=== PATIENT | female | born 2005 | race Caucasian/White ===

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

== ENCOUNTER 2023-03-29 23:44 | Emergency (ER) | payer OTHER, SELFPAY ==
[2023-03-30 00:25] VITALS: BP 112/58; PULSE 64; RESP 16; TEMP 36.3; O2SAT 99; BMI 21.9
--- NOTE | 2023-03-30 05:23 | ED.ANIMALBIT ---
HPI - Animal Bite General Chief Complaint: Animal Bite Stated Complaint: iNSECT BITE Time Seen by Provider: 03/30/23 05:23 Source: patient Mode of arrival: Ambulatory History of Present Illness HPI narrative: 17-year-old young woman with a history of significant reactions to bug bites most of her life. She comes in today complaining of a bite on the right lateral thigh right medial thigh and right flank. The right lateral thigh is still red and inflamed the other 2 sites are improving nicely. She denies any fevers nausea vomiting or other systemic symptoms at this time. Related Data Home Medications Medication Instructions Recorded Confirmed buspirone 10 mg tablet 5 mg PO BID 03/16/21 05/11/21 hydroxyzine HCl 25 mg tablet 25 mg PO BID PRN 03/16/21 05/11/21 Previous Rx's Medication Instructions Recorded trazodone 50 mg tablet 50 mg PO BEDTIME PRN insomnia #30 01/25/22 tabs clonidine HCl 0.1 mg tablet 0.1 mg PO BEDTIME Insomnia #30 tabs 01/22/23 methylphenidate HCl 36 mg 36 mg PO QAM ADHD #30 tabs 01/24/23 tablet,extended release 24 hr lamotrigine 25 mg tablet 25 mg PO BEDTIME Mood 03/07/23 Stabilization #30 tabs methylphenidate HCl 36 mg 36 mg PO QAM ADHD #30 tabs 03/07/23 tablet,extended release 24 hr Allergies Allergy/AdvReac Type Severity Reaction Status Date / Time No Known Drug Allergies Allergy Verified 10/28/22 23:25 Review of Systems Review of Systems Narrative: Pertinent positive and negative findings as per HPI Patient History Social History Smoking Status: Current every day smoker Smoking Status: Current every day smoker Substance Use Type: does not use Exam Initial Vital Signs Initial Vital Signs: Vital Signs Temperature 97.3 F L 03/30/23 00:25 Pulse Rate 64 03/30/23 00:25 Respiratory Rate 16 03/30/23 00:25 Blood Pressure 112/58 L 03/30/23 00:25 Pulse Oximetry 99 03/30/23 00:25 Oxygen Delivery Method Room Air 03/30/23 00:25 General: Alert appropriate in no acute distress Respiratory: Able to speak in full sentences, no obvious respiratory distress Skin: Bug bite with approximately 6 cm of surrounding induration on the right lateral thigh, right medial thigh the induration is almost completely resolved and the right flank the induration has completely resolved Neurologic: Grossly intact no obvious asymmetries or abnormalities Psych: appropriate insight and affect, cooperative Course Vital Signs Vital signs: Vital Signs - 8 hr 03/30/ 00:25 Temperature 97.3 F L Pulse Rate 64 Respiratory Rate 16 Blood Pressure 112/58 L Pulse Oximetry 99 Oxygen Delivery Method Room Air MDM - Animal Bite MDM Narrative Medical decision making narrative: CC: Bug bites. Acute problem self-limited Data collected from: patient, Differential considered: Bug bites, MRSA, abscess Exam documented above, pertinent findings include: Induration secondary to bug bites no evidence of secondary infection or abscess Discussion: 17-year-old young woman with bug bites x3. No sign of infection. We talked about using ibuprofen if she is feeling itchy all over or any particular bite seems like it is getting worse. Also discussed use of ibuprofen and Tylenol for overall symptom control. Reassurance is given if she is safe for discharge home Discharge Plan Departure Patient Disposition: Home Clinical Impression: Bug bite Qualifiers: Encounter type: initial encounter Qualified Code(s): W57.XXXA - Bitten or stung by nonvenomous insect and other nonvenomous arthropods, initial encounter Prescriptions: No Action hydroxyzine HCl 25 mg tablet 25 mg PO BID PRN Hold Instructions: Home Medication placed on hold at Doctor's office buspirone 10 mg tablet 5 mg PO BID Hold Instructions: Home Medication placed on hold at Doctor's office trazodone 50 mg tablet 50 mg PO BEDTIME PRN (Reason: insomnia) Qty: 30 2RF Hold Instructions: patient states not taking anymore methylphenidate HCl 36 mg tablet extended release 24hr 36 mg PO QAM Qty: 30 0RF Hold Instructions: Home Medication placed on hold at Doctor's office clonidine HCl 0.1 mg tablet 0.1 mg PO BEDTIME Qty: 30 2RF Hold Instructions: Home Medication placed on hold at Doctor's office lamotrigine 25 mg tablet 25 mg PO BEDTIME MDD 25 mg Qty: 30 1RF methylphenidate HCl 36 mg tablet extended release 24hr 36 mg PO QAM Qty: 30 0RF Hold Instructions: Home Medication placed on hold at Doctor's office Referrals: Miscellaneous,Doctor, MD [Primary Care Provider] - Stand Alone Forms: Patient Portal/API
[2023-03-30 05:48] VITALS: BP 118/64; PULSE 66; RESP 14; TEMP 36.4; O2SAT 99
== END 2023-03-30 05:50 | disposition home or self-care (01) ==
PROVIDERS: Emergency Provider Emergency Medicine
DX: S80.861A Insect bite (nonvenomous), right lower leg, initial encounter (principal); W57.XXXA Bitten or stung by nonvenomous insect and other nonvenomous arthropods, initial encounter
CPT/HCPCS: 99281

== ENCOUNTER 2023-12-23 21:31 | Emergency (ER) | payer OTHER, SELFPAY ==
[2023-12-23 21:45] VITALS: BP 126/74; PULSE 98; RESP 20; TEMP 37; O2SAT 99; BMI 23.0
--- NOTE | 2023-12-23 22:18 | DI.US.S_ITS ---
PROCEDURE: US OB <= 14 WEEKS FETUS INDICATIONS: unknown dates + home test with bleeding OUTSIDE/PRIOR DATING DATA: Last menstrual period (LMP): Not available. LMP-based estimated date of delivery (JOSE): Not available. First dating scan (date and location): 12/23/2023 at . Estimated date of delivery (JOSE) from first dating scan: 08/18/2024. TECHNIQUE: Real-time scanning was performed of the fetus and maternal pelvic organs, with image documentation. Endovaginal scanning was also performed to better visualize the fetus and maternal ovaries. COMPARISON: None. FINDINGS: Embryo: There is an intrauterine gestational sac. A pole is present measuring 5 weeks 6 days. cardiac join is visualized with heart rate 104 BPM. Endometrium is thickened measuring 28.4 mm. Maternal organs: Ovaries are grossly normal. IMPRESSION: 1. A single living intrauterine gestation with an estimated gestational age of 5 weeks 6 days corresponding to ultrasound JOSE 08/18/2024. 2. Endometrium is thickened, which may be secondary to decidual reaction. Recommend clinical correlation and follow-up as clinically indicated. 3. No perigestational bleed. We strive to produce accurate, complete, and clear reports of imaging services. To assist us in improving patient care, this report was composed using standard report templates and voice recognition software. Therefore, it may contain abnormal punctuation, insertions and/or omissions. Occasional wrong-word or sound-alike substitutions may occur. Though we review the report and make efforts to correct it, we do recommend that the report be read carefully in proper context to recognize any text inaccuracies. Dictated by: Lulu Burciaga M.D. on 12/23/2023 at 23:44 Approved by: Lulu Burciaga M.D. on 12/23/2023 at 23:47
[2023-12-23 22:45] LABS: Add Manual Diff / Slide Review NO; Basophils Absolute Auto 100 /uL (0-100); Basophils Percent Auto 0.9 % (0-2); Eosinophils Absolute Auto 100 /uL (0-450); Eosinophils Percent Auto 0.9 % (2-4); Hematocrit 33.2 % (36-46); Hemoglobin 11.1 g/dL (12.0-16.0); Lymphocytes Absolute Auto 2800 /uL (1100-4500); Lymphocytes Percent Auto 31.3 % (25-40); Mean Corpuscular HGB Conc 33.4 % (30-36); Mean Corpuscular Hemoglobin 31.4 PG (26-34); Mean Corpuscular Volume 94.2 fL (80-100); Monocytes Absolute Auto 900 /uL (0-900); Monocytes Percent Auto 9.9 % (3-14); Neutrophils Absolute Auto 5100 /uL (1500-7000); Platelet Count 281 X10^3/uL (150-400); Red Blood Cell Count 3.53 X10^6/uL (4.0-5.2); Red Cell Distribution Width 12.8 % (11.6-14.8)
--- NOTE | 2023-12-23 22:50 | ED_ITS ---
HPI - General Adult General Chief complaint: Urogenital-Female Stated complaint: wants to know how far Time Seen by Provider: 12/23/23 21:43 Source: patient Mode of arrival: Ambulatory History of Present Illness HPI narrative: Patient is a 18-year-old female. Took 2 tests today at home and they were both positive. She is unsure as to how far along she is. Her last normal menstrual cycle was in September of this year. She has never been before. She has not having any vaginal bleeding or discharge. Vomiting. No fevers. Related Data Home Medications Medication Instructions Recorded Confirmed buspirone 10 mg tablet 5 mg PO BID 03/16/21 05/11/21 hydroxyzine HCl 25 mg tablet 25 mg PO BID PRN 03/16/21 05/11/21 Previous Rx's Medication Instructions Recorded trazodone 50 mg tablet 50 mg PO BEDTIME PRN insomnia #30 01/25/22 tabs clonidine HCl 0.1 mg tablet 0.1 mg PO BEDTIME Insomnia #30 tabs 09/12/23 lamotrigine 25 mg tablet 50 mg (2 x 25 mg) PO BEDTIME Mood 09/12/23 Stabilization #60 tabs methylphenidate HCl 36 mg 36 mg PO QAM ADHD #30 tabs 09/12/23 tablet,extended release 24 hr methylphenidate HCl 36 mg 36 mg PO QAM ADHD #30 tabs 09/12/23 tablet,extended release 24 hr Allergies Allergy/AdvReac Type Severity Reaction Status Date / Time No Known Drug Allergies Allergy Verified 10/28/22 23:25 Review of Systems Constitutional Constitutional: Reports system reviewed and no additional complaints, except as documented Gastrointestinal Gastrointestinal: Reports system reviewed and no additional complaints, except as documented Genitourinary Genitourinary: Reports system reviewed and no additional complaints, except as documented Integumentary/Breasts Skin/Breast: Reports system reviewed and no additional complaints, except as documented Patient History Social History Smoking Status: Current every day smoker Smoking Status: Current every day smoker tobacco type: vaping alcohol intake frequency: other Substance Use Type: does not use Exam Initial Vital Signs Initial Vital Signs: Vital Signs Temperature 98.6 F 12/23/23 21:45 Pulse Rate 98 H 12/23/23 21:45 Respiratory Rate 20 12/23/23 21:45 Blood Pressure 126/74 12/23/23 21:45 Pulse Oximetry 99 12/23/23 21:45 Oxygen Delivery Method Room Air 12/23/23 21:45 HENMT Head: normal to inspection and normocephalic Resp Effort & Inspection: normal respiratory effort GI Inspection: non-distended Course Orders Ordered: ED Orders 12/23/23 21:54 Consult to [employer] - Housecleaner Floor Stat 12/23/23 22:18 US OB <= 14 weeks fetus Stat 12/23/23 22:34 ABO RH Type Stat Basic Metabolic Panel Stat Complete Blood Count AUTO DIFF Stat HCG Quantitative /Beta subunit Stat Vital Signs Vital signs: Vital Signs - 8 hr 12/23/23 21:45 12/24/23 00:08 Temperature 98.6 F Pulse Rate 98 H 88 Respiratory Rate 20 16 Blood Pressure 126/74 113/61 Pulse Oximetry 99 99 Oxygen Delivery Method Room Air Room Air Medical Decision Making Lab Data Lab results reviewed: Yes I reviewed the patient's lab results. 12/23/23 22:34 12/23/23 22:34 Labs: Lab Results 12/23/23 Range/Units 22:34 WBC 9.0 (4.5-11.0) X10^3/uL RBC 3.53 L (4.0-5.2) X10^6/uL Hgb 11.1 L (12.0-16.0) g/dL Hct 33.2 L (36-46) % MCV 94.2 (80-100) fL MCH 31.4 (26-34) PG MCHC 33.4 (30-36) % RDW 12.8 (11.6-14.8) % Plt Count 281 (150-400) X10^3/uL Neut % (Auto) 57.0 (50-75) % Lymph % (Auto) 31.3 (25-40) % Dickens % (Auto) 9.9 (3-14) % Eos % (Auto) 0.9 L (2-4) % Baso % (Auto) 0.9 (0-2) % Neut # (Auto) 5100 (7060-8064) /uL Lymph # (Auto) 2800 (0201-4940) /uL Dickens # (Auto) 900 (0-900) /uL Eos # (Auto) 100 (0-450) /uL Baso # (Auto) 100 (0-100) /uL Sodium 136 L (137-145) mmol/L Potassium 3.9 (3.4-5.1) mmol/L Chloride 105 (98-107) mmol/L Carbon Dioxide 26 (22-32) mmol/L BUN 14 (7-17) mg/dL Creatinine 0.42 L (0.52-1.04) mg/dL Estimated GFR > 60 (>60) mL/min BUN/Creatinine Ratio 33.3 H (6-22) Glucose 89 (70-100) mg/dL Calcium 9.4 (8.4-10.2) mg/dL HCG, Quant 30262 mIU/mL Blood Type A Positive Point of Care Testing Test Results Positive Point of care testing: Point of Care Testing Test Results Positive Imaging Data US - OB: Radiologist's Impression: PROCEDURE: US OB <= 14 WEEKS FETUS INDICATIONS: unknown dates + home test with bleeding OUTSIDE/PRIOR DATING DATA: Last menstrual period (LMP): Not available. LMP-based estimated date of delivery (JOSE): Not available. First dating scan (date and location): 12/23/2023 at . Estimated date of delivery (JOSE) from first dating scan: 08/18/2024. TECHNIQUE: Real-time scanning was performed of the fetus and maternal pelvic organs, with image documentation. Endovaginal scanning was also performed to better visualize the fetus and maternal ovaries. COMPARISON: None. FINDINGS: Embryo: There is an intrauterine gestational sac. A pole is present measuring 5 weeks 6 days. cardiac join is visualized with heart rate 104 BPM. Endometrium is thickened measuring 28.4 mm. Maternal organs: Ovaries are grossly normal. IMPRESSION: 1. A single living intrauterine gestation with an estimated gestational age of 5 weeks 6 days corresponding to ultrasound JOSE 08/18/2024. 2. Endometrium is thickened, which may be secondary to decidual reaction. Recommend clinical correlation and follow-up as clinically indicated. 3. No perigestational bleed. MDM Narrative Medical decision making narrative: Patient is Rh positive. Has a single live intrauterine at approximately 6 weeks EGA. I did inform the patient of this. I did give the patient information for follow-up she was going to need to make some decisions about whether or not to keep the . Will discharge patient home with return precautions. Discharge Plan Departure Patient Disposition: Home Clinical Impression: Activity Restrictions/Additional Instructions: I do recommend that you contact the OB providers with the number provided below for a follow-up to discuss options. Your ultrasound today shows that you were approximately 6 weeks along. Return to the emergency department for new symptoms. Prescriptions: No Action lamotrigine 25 mg tablet 50 mg PO BEDTIME MDD 50 mg Qty: 60 2RF Rx Instructions: Dose Change methylphenidate HCl 36 mg tablet extended release 24hr 36 mg PO QAM Qty: 30 0RF Hold Instructions: Home Medication placed on hold at Doctor's office methylphenidate HCl 36 mg tablet extended release 24hr 36 mg PO QAM Qty: 30 0RF Hold Instructions: Home Medication placed on hold at Doctor's office clonidine HCl 0.1 mg tablet 0.1 mg PO BEDTIME Qty: 30 2RF Hold Instructions: Home Medication placed on hold at Doctor's office hydroxyzine HCl 25 mg tablet 25 mg PO BID PRN Hold Instructions: Home Medication placed on hold at Doctor's office buspirone 10 mg tablet 5 mg PO BID Hold Instructions: Home Medication placed on hold at Doctor's office trazodone 50 mg tablet 50 mg PO BEDTIME PRN (Reason: insomnia) Qty: 30 2RF Hold Instructions: patient states not taking anymore Referrals: Cassandra Abdullahi MD [Physician] - Miscellaneous,MD Lonnie [Primary Care Provider] - Stand Alone Forms: Patient Portal/API
[2023-12-23 22:57] LABS: BUN Creatinine Ratio 33.3 (6-22); Blood Urea Nitrogen 14 mg/dL (7-17); Calcium 9.4 mg/dL (8.4-10.2); Carbon Dioxide 26 mmol/L (22-32); Chloride 105 mmol/L (98-107); Estimated Glomerular Filt Rate > 60 mL/min (>60); Glucose 89 mg/dL (70-100); HEMOLYSIS < 15 (0-50); Potassium 3.9 mmol/L (3.4-5.1); Sodium 136 mmol/L (137-145)
[2023-12-23 23:14] LABS: HCG Quantitative /Beta subunit 13619 mIU/mL
[2023-12-24 00:08] VITALS: BP 113/61; PULSE 88; RESP 16; O2SAT 99
== END 2023-12-24 00:10 | disposition home or self-care (01) ==
PROVIDERS: Emergency Provider Emergency Medicine
DX: Z34.01 Encounter for supervision of normal first pregnancy, first trimester (principal); Z3A.01 Less than 8 weeks gestation of pregnancy
CPT/HCPCS: 76801; 80048; 81025; 84702; 85025; 86900; 86901; 99283

== ENCOUNTER 2024-02-25 00:07 | Emergency (ER) | payer OTHER, SELFPAY ==
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
[2024-02-25 00:19] VITALS: BP 132/63; PULSE 76; RESP 16; TEMP 36.8; O2SAT 100; BMI 21.2
[2024-02-25 01:03] VITALS: BP 112/60; PULSE 88; RESP 16; O2SAT 98
[2024-02-25 01:30] VITALS: BP 110/69; PULSE 68; RESP 18; O2SAT 99
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
== END 2024-02-25 01:53 | disposition home or self-care (01) ==
PROVIDERS: Emergency Provider Emergency Medicine
DX: S20.212A Contusion of left front wall of thorax, initial encounter (principal); V89.2XXA Person injured in unspecified motor-vehicle accident, traffic, initial encounter
CPT/HCPCS: 71101; 99281; 99283

== ENCOUNTER 2024-06-11 15:28 | Emergency (ER) | payer OTHER, MEDICAID, SELFPAY ==
--- NOTE | 2024-06-11 15:38 | ED.URI ---
HPI - URI/Sore Throat <Candelaria Watters PA-C - Last Filed: 06/11/24 18:06> General Chief Complaint: Upper Respiratory Symptoms Stated Complaint: COVID or Strep Time Seen by Provider: 06/11/24 15:33 History of Present Illness HPI Narrative: Patient is a 18-year-old female presents to the emergency room department with her significant other. With cough, cold, congestion sore throat. Her roommate recently had COVID. She has had upper respiratory symptoms and sore throat for the past couple of days. Unknown if she has a fever. No recent travel, no recent antibiotics, recent sick contacts. She has not vaccinated. Patient has not done anything [id number] for her symptoms except popsicles and soup. Patient vapes, social alcohol, no recreational drug use. No other physical complaints. Related Data Home Medications Medication Instructions Recorded Confirmed buspirone 10 mg tablet 5 mg PO BID 03/16/21 05/11/21 hydroxyzine HCl 25 mg tablet 25 mg PO BID PRN 03/16/21 05/11/21 Previous Rx's Medication Instructions Recorded trazodone 50 mg tablet 50 mg PO BEDTIME PRN insomnia #30 01/25/22 tabs methylphenidate HCl 36 mg 36 mg PO QAM ADHD #30 tabs 09/12/23 tablet,extended release 24 hr clonidine HCl 0.1 mg tablet 0.1 mg PO BEDTIME Insomnia #30 tabs 06/10/24 lamotrigine 25 mg tablet 50 mg (2 x 25 mg) PO BEDTIME Mood 06/10/24 Stabilization #60 tabs lisdexamfetamine 10 mg capsule 10 mg PO QAM ADHD #30 caps 06/10/24 (Vyvanse) lisdexamfetamine 10 mg capsule 10 mg PO QAM ADHD #30 caps 06/10/24 (Vyvanse) lidocaine HCl 2 % mucosal solution 5 ml mucous membrane TID PRN pain 06/11/24 (Lidocaine Viscous) #100 mL Allergies Allergy/AdvReac Type Severity Reaction Status Date / Time No Known Drug Allergies Allergy Verified 06/11/24 15:57 Review of Systems <Candelaria Watters PA-C - Last Filed: 06/11/24 18:06> Review of Systems Narrative: Negative except as above ENT Comments: Sore throat Respiratory Comments: Cough, congestion, upper respiratory symptoms. Patient History <Candelaria Watters PA-C - Last Filed: 06/11/24 18:06> Social History Smoking Status: Current every day smoker Smoking Status: Current every day smoker tobacco type: vaping alcohol intake frequency: other Substance Use Type: does not use Exam <Candelaria Watters PA-C - Last Filed: 06/11/24 18:06> Initial Vital Signs Initial Vital Signs: Vital Signs Temperature 98.2 F 06/11/24 15:40 Pulse Rate 72 06/11/24 15:40 Respiratory Rate 16 06/11/24 15:40 Blood Pressure 108/59 L 06/11/24 15:40 Pulse Oximetry 100 06/11/24 15:40 Oxygen Delivery Method Room Air 06/11/24 15:40 Const General: cooperative, healthy appearing, comfortable, well developed, well groomed, No acute distress and No in distress Nutritional Appearance: average body habitus and well nourished [facility] Head: normal to inspection, normocephalic and atraumatic Ears: hearing grossly normal bilaterally, external ears normal, TM's normal bilaterally, TM normal on the right and TM normal on the left Nose: external nose normal, nares normal and nasal mucous membranes and turbinates normal Mouth: lip normal, tongue normal, moist mucous membranes and other Neck Other: Moderate amount of soft tissue swelling in the posterior aspect of her throat. Bilateral enlargement of her tonsils, uvula is midline, no pus, airway is patent. Bilateral cervical lymphadenopathy. Resp Effort & Inspection: normal respiratory effort, able to speak in complete sentences and no cough Auscultation: clear to auscultation bilaterally, no crackles, no rales, no rhonchi and no wheezes Cardio Rate: regular rate Rhythm: regular rhythm Heart Sounds: S1 normal and S2 normal Skin Other: Warm pink and dry Neuro General: patient alert, patient awake, patient oriented x3, oriented and gait normal Cranial Nerves: CN's II-XI intact bilaterally Cognition: normal cognition Speech: speech normal Gait: normal gait Motor: muscle tone normal throughout Extrem Other: Range of motion, strength, pulses, cap refill preserved in the upper and lower extremities bilaterally. Psych Appearance: grossly normal and well kempt Mental Status: mental status grossly normal Speech and Movement: speech and movement normal Mood: congruent mood Affect: normal affect Attitude: cooperative Thought Process: normal Thought Content: normal Judgment: judgment good <Allison Streeter DO - Last Filed: 06/12/24 07:40> Initial Vital Signs Initial Vital Signs: Vital Signs Temperature 98.2 F 06/11/24 15:40 Pulse Rate 72 06/11/24 15:40 Respiratory Rate 16 06/11/24 15:40 Blood Pressure 108/59 L 06/11/24 15:40 Pulse Oximetry 100 06/11/24 15:40 Oxygen Delivery Method Room Air 06/11/24 15:40 Scores <Candelaria Watters PA-C - Last Filed: 06/11/24 18:06> GCS Citation: 15 Course <Candelaria Watters PA-C - Last Filed: 06/11/24 18:06> Orders Ordered: ED Orders 06/11/24 15:50 Strep Grp A by PCR Rapid Stat 06/11/24 15:58 Covid-19 + FLU A/B + RSV - PCR Stat Strep Screen Stat Vital Signs Vital signs: Vital Signs - 8 hr 06/11/24 15:40 Temperature 98.2 F Pulse Rate 72 Respiratory Rate 16 Blood Pressure 108/59 L Pulse Oximetry 100 Oxygen Delivery Method Room Air <Allison Streeter DO - Last Filed: 06/12/24 07:40> Orders Ordered: ED Orders 06/11/24 15:50 Strep Grp A by PCR Rapid Stat 06/11/24 15:58 Covid-19 + FLU A/B + RSV - PCR Stat Strep Screen Stat Vital Signs Vital signs: Vital Signs - 8 hr 06/11/24 15:40 Temperature 98.2 F Pulse Rate 72 Respiratory Rate 16 Blood Pressure 108/59 L Pulse Oximetry 100 Oxygen Delivery Method Room Air MDM - URI/Sore Throat <FAYE Rojas Last Filed: 06/11/24 18:06> Lab Data Labs: Lab Results 06/11/24 06/11/24 Range/Units 15:50 15:58 SARS-CoV-2 (PCR) Negative (Negative) Influenza A (RT-PCR) Flu a negative (NEGATIVE) Influenza B (RT-PCR) Flu b negative (NEGATIVE) RSV (PCR) Negative (Negative) Group A Strep (PCR) Negative (Negative) MDM Narrative Medical decision making narrative: 18-year-old female several days of upper respiratory symptoms and sore throat. No preventative treatment prior to being seen here in the emergency room department. Not vaccinated. Smokes, social drinking, no recreational drug use. Strep screen COVID negative Influenza negative RSV negative Differential diagnosis; strep pharyngitis, COVID, influenza, RSV, viral pharyngitis, viral URI. <Allison Streeter, - Last Filed: 06/12/24 07:40> Lab Data Labs: Lab Results 06/11/24 06/11/24 Range/Units 15:50 15:58 SARS-CoV-2 (PCR) Negative (Negative) Influenza A (RT-PCR) Flu a negative (NEGATIVE) Influenza B (RT-PCR) Flu b negative (NEGATIVE) RSV (PCR) Negative (Negative) Group A Strep (PCR) Negative (Negative) Discharge Plan Departure Patient Disposition: Home Clinical Impression: Acute viral pharyngitis Activity Restrictions/Additional Instructions: [id number] supportive therapy, nasal complaints Nasonex followed by ocean spray. Sore throat cough drops, throat lozenges, Chloraseptic spray, salt water gargles. Dry cough Delsym wet cough Mucinex. Humidified air, steam showers. Plenty of rest, balanced diet, stay hydrated. TheraFlu, DayQuil, NyQuil. Vicks Vaporub. Follow Up with her primary care doctor Strep negative COVID negative Influenza negative RSV negative [id number] supportive therapy for your symptoms. Cough cold runny nose, sore throat. Prescription of viscous lidocaine swish and spit, this will help numb the back of the throat. However it numbness everything including her cheeks, your tongue so be very careful with what you drink and eat while your mouth is numb. Supportive therapy as described above Prescriptions: New lidocaine HCl [Lidocaine Viscous] 2 % solution 5 ml mucous membrane TID PRN (Reason: pain) Qty: 100 0RF No Action methylphenidate HCl 36 mg tablet extended release 24hr 36 mg PO QAM Qty: 30 0RF Hold Instructions: Home Medication placed on hold at Doctor's office hydroxyzine HCl 25 mg tablet 25 mg PO BID PRN Hold Instructions: Home Medication placed on hold at Doctor's office buspirone 10 mg tablet 5 mg PO BID Hold Instructions: Home Medication placed on hold at Doctor's office trazodone 50 mg tablet 50 mg PO BEDTIME PRN (Reason: insomnia) Qty: 30 2RF Hold Instructions: patient states not taking anymore lisdexamfetamine [Vyvanse] 10 mg capsule 10 mg PO QAM Qty: 30 0RF lisdexamfetamine [Vyvanse] 10 mg capsule 10 mg PO QAM Qty: 30 0RF Rx Instructions: New Medication lamotrigine 25 mg tablet 50 mg PO BEDTIME MDD 50 mg Qty: 60 2RF Rx Instructions: Dose Change clonidine HCl 0.1 mg tablet 0.1 mg PO BEDTIME Qty: 30 2RF Hold Instructions: Home Medication placed on hold at Doctor's office Referrals: Miscellaneous,Doctor, MD [Primary Care Provider] - Stand Alone Forms: Patient Portal/API ED Sign-out <Allison Streeter DO - Last Filed: 06/12/24 07:40> Cosign ED Attending Lyn Attestation: I was available for consultation.
[2024-06-11 15:40] VITALS: BP 108/59; PULSE 72; RESP 16; TEMP 36.8; O2SAT 100; BMI 20.1
[2024-06-11 16:44] LABS: Influenza A - CEPHEID Flu A NEGATIVE (NEGATIVE); Influenza B - CEPHEID Flu B NEGATIVE (NEGATIVE); Respiratory Syncytial Virus Negative (Negative)
[2024-06-11 16:46] LABS: COVID-19 CEPHEID 4-PLEX PCR Negative (Negative)
[2024-06-11 17:39] LABS: Strep Grp A by PCR Rapid Negative (Negative)
[2024-06-11 18:18] VITALS: BP 103/61; PULSE 77; RESP 18; O2SAT 100
== END 2024-06-11 18:19 | disposition home or self-care (01) ==
PROVIDERS: Emergency Provider Physician Assistant
DX: J02.0 Streptococcal pharyngitis (principal); Z20.822 Contact with and (suspected) exposure to COVID-19
CPT/HCPCS: 87635; 87400; 87420; 0241U; 87081; 87147; 87651; 99281; 99282